=== PATIENT | male | born 1980 | race Caucasian/White ===

== ENCOUNTER 2021-09-13 11:21 | Day surgery (SDC) | payer BC, MEDICAID ==
[~2021-09-13 11:21] MED LIST: Lactated Ringers 1,000 ML IV SCH
--- NOTE | 2021-09-13 11:58 | PCM.PREANE ---
Preanesthetic Assessment - Procedure Proposed Procedure: L elbow bone spur excision, R. elbow scar revision - Anesthesia/Transfusion/Family Hx Anesthesia History: Prior Anesthesia Without Reaction Family History of Anesthesia Reaction: No Transfusion History: No Prior Transfusion(s) - Review of Systems General: No Symptoms Pulmonary: No Symptoms (Wuit smoking x 3 years) Cardiovascular: No Symptoms Gastrointestinal: No Symptoms Neurological: No Symptoms Other: Reports: None - Physical Assessment NPO Status Date: 09/12/21 NPO Status Time: 21:30 Vital Signs: Last Vital Signs Temp 99.0 F 09/13/21 11:49 Pulse 97 09/13/21 11:49 Resp 16 09/13/21 11:49 BP 142/104 H 09/13/21 11:49 Pulse Ox 96 09/13/21 11:49 Height: 5 ft 11 in Weight: 117.934 kg ASA Class: 2 Mental Status: Alert & Oriented x3 Airway Class: Mallampati = 2 Dentition: Reports: Normal Dentition Thyro-Mental Finger Breadths: 3 Mouth Opening Finger Breadths: 3 ROM/Head Extension: Full Lungs: Clear to Auscultation, Normal Respiratory Effort Cardiovascular: Regular Rate, Regular Rhythm - Allergies Allergies/Adverse Reactions: Allergies Allergy/AdvReac Type Severity Reaction Status Date / Time No Known Allergies Allergy Verified 09/11/21 14:30 - Acknowledgements Anesthesia Type Planned: General Anesthesia Pt an Appropriate Candidate for the Planned Anesthesia: Yes Alternatives and Risks of Anesthesia Discussed w Pt/Guardian: Yes Pt/Guardian Understands and Agrees with Anesthesia Plan: Yes PreAnesthesia Questionnaire HEENT History: Reports: None Cardiovascular History: Reports: None Respiratory History: Reports: None Gastrointestinal History: Reports: None Genitourinary History: Reports: None Musculoskeletal History: Reports: Other (See Below) Other Musculoskeletal History: occasional back "flair-up" Neurological History: Reports: None Psychiatric History: Reports: None Endocrine/Metabolic History: Reports: Obesity/BMI 30+ Hematologic History: Reports: None Immunologic History: Reports: None Oncologic (Cancer) History: Reports: None Dermatologic History: Reports: None - Past Surgical History Head Surgeries/Procedures: Reports: None Musculoskeletal Surgical History: Reports: Other (See Below) Other Musculoskeletal Surgeries/Procedures:: Right Biceps Tendon Repair - SUBSTANCE USE Tobacco Use Status *Q: Former Tobacco User Tobacco Use Within Last Twelve Months: No Days Per Week of Alcohol Use: 7 Recreational Drug Use History: No - HOME MEDS Home Medications: Home Meds Naproxen 500 mg PO BID PRN 09/11/21 [History] - CURRENT (IN HOUSE) MEDS Current Meds: Current Medications Lactated Ringer's (Ringers, Lactated) 1,000 mls @ 100 mls/hr IV ASDIRECTED SUE Cefazolin Sodium/Dextrose 2 gm (/ Premix) 50 mls @ 100 mls/hr IV ONCALL SUE
[2021-09-13] MEDS ORDERED: ceFAZolin 2 GM in Premix Bag 1 BAG IV SCH (12:00)
[2021-09-13] MEDS ORDERED: HYDROmorphone 1 MG/ML Syringe IVPUSH PRN (12:26)
[2021-09-13] MEDS ORDERED: Naloxone 0.4 MG/ML SDV IVPUSH PRN (12:26)
[2021-09-13] MEDS ORDERED: fentaNYL 100 MCG/2 ML SDV IVPUSH PRN (12:26)
[2021-09-13] MEDS ORDERED: Ondansetron 4 MG/2 ML SDV IVPUSH PRN (12:26)
[2021-09-13] MEDS ORDERED: Albuterol 0.083% 2.5 MG/3 ML Neb Soln NEB PRN (12:26)
[2021-09-13] MEDS ORDERED: Metoclopramide 10 MG/2 ML SDV IVPUSH PRN (12:26)
[2021-09-13] MEDS ORDERED: Dexamethasone 4 MG/ML 5 ML MDV ONE (12:41)
[2021-09-13] MEDS ORDERED: Dexmedetomidine 200 MCG/2 ML SDV ONE (12:41)
[2021-09-13] MEDS ORDERED: Lidocaine 2% 5 ML SDV ONE (12:41)
[2021-09-13] MEDS ORDERED: Water For Injection, Sterile 20 ML ONE (12:42)
[2021-09-13] MEDS ORDERED: Midazolam 1 MG/ML 2 ML SDV ONE (12:42)
[2021-09-13] MEDS ORDERED: Propofol 200 MG/20 ML SDV ONE (12:42)
[2021-09-13] MEDS ORDERED: Bupivacaine 25%/EPINEPHrine/PF 30 ML ONE (13:10)
[2021-09-13] MEDS ORDERED: Octyl 2-Cyanoacrylate 1 Tube ONE (13:10)
[2021-09-13] MEDS ORDERED: Ketorolac 30 MG/ML SDV ONE (13:53)
[2021-09-13] MEDS ORDERED: Ondansetron 4 MG/2 ML SDV ONE (13:53)
[2021-09-13] MEDS ORDERED: fentaNYL 100 MCG/2 ML SDV ONE (13:54)
--- NOTE | 2021-09-13 14:40 | PCM.POSTAN ---
POST ANESTHESIA ASSESSMENT - MENTAL STATUS Mental Status: Alert, Oriented - VITAL SIGNS Vital Signs: Last Vital Signs Temp 36.2 C 09/13/21 14:24 Pulse 72 09/13/21 14:35 Resp 9 L 09/13/21 14:35 BP 116/73 09/13/21 14:35 Pulse Ox 96 09/13/21 14:35 - RESPIRATORY Respiratory Status: Respiratory Rate WNL, Airway Patent, O2 Saturation Stable - CARDIOVASCULAR CV Status: Pulse Rate WNL, Blood Pressure Stable - GASTROINTESTINAL GI Status: No Symptoms - POST OP HYDRATION Hydration Status: Adequate & Stable
--- NOTE | 2021-09-13 14:49 | PCM48HPAN ---
Post Anesthesia Note - EVALUATION WITHIN 48HRS OF ANESTHETIC Vital Signs in Normal Range: Yes Patient Participated in Evaluation: Yes Respiratory Function Stable: Yes Airway Patent: Yes Cardiovascular Function Stable: Yes Hydration Status Stable: Yes Pain Control Satisfactory: Yes Nausea and Vomiting Control Satisfactory: Yes Mental Status Recovered: Yes Vital Signs: Last Vital Signs Temp 36.2 C 09/13/21 14:24 Pulse 75 09/13/21 14:44 Resp 16 09/13/21 14:44 BP 125/79 09/13/21 14:44 Pulse Ox 96 09/13/21 14:44
[2021-09-13] MEDS ORDERED: Acetaminophen/HYDROcodone 325-5 MG Tab PO ONE (15:14)
--- NOTE | 2021-09-14 09:20 | CR ---
INDICATION: Elbow pain. COMPARISON: 08/30/2021. FINDINGS: Intraoperative fluoroscopic support provided orthopedic service for bone spur resection. A single spot fluoroscopic image of the left elbow is provided. A total of 1 seconds fluoroscopy time was utilized. IMPRESSION: Intraoperative fluoroscopic support provided the orthopedic service. Please see the operative note for additional details. Dictated by Wisam Bailey MD @ 09/14/2021 9:18:37 AM (Electronically Signed)
--- NOTE | 2021-09-14 12:37 | OR ---
SURGEON: Med Batista MD DATE OF PROCEDURE: 09/13/2021 PREOPERATIVE DIAGNOSES: 1. Left elbow olecranon spur. 2. Right elbow retained foreign body. POSTOPERATIVE DIAGNOSES: 1. Left elbow olecranon spur. 2. Right elbow retained foreign body. PROCEDURE PERFORMED: 1. Removal of olecranon spur, left elbow. 2. Scar revision with removal of a foreign material, right elbow. PRIMARY SURGEON: Med Batista MD DIRECTOR OF CASINO: Mirtha. OPERATIVE PROCEDURE: After obtaining informed consent, he was taken to the operating room, placed in supine position. After adequate induction of general anesthesia, he was prepped and draped in sterile fashion. An incision was made just lateral to the tip of the olecranon and the triceps tendon was exposed. The spur was palpated and a slit was made longitudinally in the triceps. The spur was then removed using a rongeur. The edge of the bone was rasped and smoothed with a rongeur. A C-arm x-ray showed resection of the spur. It was then copiously irrigated. The triceps was closed with #2 FiberWire suture. The skin was closed with 3-0 Vicryl. Sterile dressings were applied. All drapes were removed. The right arm was then prepped and draped. There was a small area measuring about 1.5 cm in his previous incision where a deep suture was causing episodic eruptions in the skin. This area was then ellipsed out in a full thickness fashion. The base was then debrided. It was copiously irrigated and closed with 3-0 Vicryl sutures and Dermabond. He tolerated the procedure well. Sterile dressings were applied. He was sent to recovery room stable. MAGGIE PURVIS /[id number]
== END 2021-09-13 15:55 | disposition home or self-care (01) ==
LOC: MW.SDS 11:21
PROVIDERS: ATTEND Orthopaedic Surgery
DX: M77.8 Other enthesopathies, not elsewhere classified (principal); M25.729 Osteophyte, unspecified elbow; Z87.891 Personal history of nicotine dependence; E66.9 Obesity, unspecified; Z68.36 Body mass index [BMI] 36.0-36.9, adult
CPT/HCPCS: 13120; 24120; 76000; A9270; J1100; J1885; J2250; J2405; J2704; J3010; J7120; 01480

== ENCOUNTER 2023-02-25 08:38 | Day surgery (SDC) | payer BC, MEDICAID ==
[2023-02-25] MEDS ORDERED: Propofol 200 MG/20 ML SDV ONE (09:33)
[2023-02-25] MEDS ORDERED: fentaNYL 100 MCG/2 ML SDV ONE (09:33)
[2023-02-25] MEDS ORDERED: Midazolam 1 MG/ML 2 ML SDV ONE (09:33)
[2023-02-25] MEDS ORDERED: Lactated Ringers 1,000 ML IV SCH (10:45)
== END 2023-02-25 10:44 | disposition home or self-care (01) ==
LOC: MW.SDS 08:38
PROVIDERS: ATTEND Surgery
DX: K64.1 Second degree hemorrhoids (principal); M19.90 Unspecified osteoarthritis, unspecified site; E66.9 Obesity, unspecified; Z87.891 Personal history of nicotine dependence; Z79.899 Other long term (current) drug therapy; Z98.890 Other specified postprocedural states; Z68.36 Body mass index [BMI] 36.0-36.9, adult
CPT/HCPCS: 45378; J2250; J2704; J3010; J7120